=== PATIENT | male | born 1975 ===

== ENCOUNTER → 2018-03-25 | Outpatient (CLI) | payer BC | LOC: GMAE 14:46 | PROVIDERS: ATTEND Family Medicine | DX: Z00.00 Encounter for general adult medical examination without abnormal findings (principal); R20.2 Paresthesia of skin ==

== ENCOUNTER → 2020-03-03 | Outpatient (CLI) | payer BC | LOC: GMAE 12:44 | PROVIDERS: ATTEND Family Medicine | DX: E78.2 Mixed hyperlipidemia (principal); R53.82 Chronic fatigue, unspecified; Z13.29 Encounter for screening for other suspected endocrine disorder ==